=== PATIENT | female | born 2005 | race Caucasian/White ===

== ENCOUNTER 2024-05-17 01:07 | Emergency (ER) | payer BC ==
--- NOTE | 2024-05-17 01:28 | EDPHYS ---
Physician Documentation [facility] Name: Brittany Veloz Age: 19 yrs Sex: Female : 2005 Arrival Date: 05/17/2024 Time: 01:07 Bed 4 Private MD: ED Physician Dc Noyola HPI: 05/17 01:37 This 19 yrs old Female presents to ER via Unassigned with complaints of Toothache, Jaw rt Pain. 01:37 Patient presents to the ED with several days of a left-sided jaw pain, swelling. rt Reports is similar to previous episodes of odontogenic infection. She has not yet been able to get into her dentist. Denies other acute complaints at this time, symptoms are mild in severity, no other aggravating or elevating factors.. Historical: - Allergies: :30 No Known Allergies; bm8 - Home Meds: :30 None [Active]; bm8 - PMHx: 01:30 None; bm8 - PSHx: 01:30 None; bm8 - Immunization history:: Adult Immunizations up to date. - Infectious Disease History:: Denies. - Family history:: not pertinent. - Social history:: Smoking status: Patient denies any tobacco usage or history of. ROS: 01:37 Constitutional: Negative for fever, chills, and weight loss, Cardiovascular: Negative rt for chest pain, palpitations, and edema, Respiratory: Negative for shortness of breath, cough, wheezing, and pleuritic chest pain, Abdomen/GI: Negative for abdominal pain, nausea, vomiting, diarrhea, and constipation, Skin: Negative for injury, rash, and discoloration, Neuro: Negative for headache, weakness, numbness, tingling, and seizure, 01:37 ENT: Positive for dental pain, Negative for difficulty swallowing, Exam: 01:37 Constitutional: This is a well developed, well nourished patient who is awake, alert, rt and in no acute distress. Head/Face: Normocephalic, atraumatic. Chest/axilla: Normal chest wall appearance and motion. Nontender with no deformity. No lesions are appreciated. Cardiovascular: Regular rate and rhythm with a normal S1 and S2. No gallops, murmurs, or rubs. Normal PMI, no JVD. No pulse deficits. Respiratory: Lungs have equal breath sounds bilaterally, clear to auscultation and percussion. No rales, rhonchi or wheezes noted. No increased work of breathing, no retractions or nasal flaring. Abdomen/GI: Soft, non-tender, with normal bowel sounds. No distension or tympany. No guarding or rebound. No evidence of tenderness throughout. Skin: Warm, dry with normal turgor. Normal color with no rashes, no lesions, and no evidence of cellulitis. MS/ Extremity: Pulses equal, no cyanosis. Neurovascular intact. Full, normal range of motion. 01:37 ENT: Dental caries noted, minimal swelling along the angle of the mandible, OP otherwise benign. MDM: 01:23 Patient medically screened. rt 01:37 Differential diagnosis: dental caries, dental abscess. Data reviewed: vital signs, rt nurses notes. I considered the following discharge prescriptions or medication management in the emergency department Medications were administered in the Emergency Department. See MAR. Test considered but Not performed: Other Details Only apparent minor infection, stable vital signs, CT scan, labs not indicated. Counseling: I had a detailed discussion with the patient and/or guardian regarding the historical points, exam findings, and any diagnostic results supporting the discharge/admit diagnosis, the need for outpatient follow up, to return to the emergency department if symptoms worsen or persist or if there are any questions or concerns that arise at home. Administered Medications: 01:30 Drug: Amoxicillin-Clavulanate PO 875 mg PO once Route: PO; lg3 01:33 Follow up: Response: No adverse reaction; Medication Administered at Departure bm8 Disposition Summary: 05/17/24 01:28 Discharge Ordered Notes: Location: Home rt Problem: new rt Symptoms: are unchanged rt Condition: Stable rt Diagnosis - Dental infection rt Followup: rt - With: Private Physician - When: 2 - 3 days - Reason: Discharge Instructions: - Discharge Summary Sheet rt - Dental Pain rt Forms: - Medication Reconciliation Form rt - Antibiotic Education rt - Prescription Opioid Use rt - Patient Portal Instructions rt - Leadership Thank You Letter rt Prescriptions: - Amoxicillin 875 mg Oral Tablet - take 1 tablet ORAL route every 12 hours for 10 days; 20 tablet; Refills: 0, rt Product Selection Permitted Signatures: Maddie Blanton RN RN lg3 Dc Noyola MD MD rt Kern, Avelino, RN RN bm8
[2024-05-17] MEDS ORDERED: AMOX/K CLAV 875 MG TAB ONE (01:29)
--- NOTE | 2024-05-17 01:38 | ER ---
Nurse's Notes [facility] Name: Brittany Veloz Age: 19 yrs Sex: Female : 2005 Arrival Date: 05/17/2024 Time: 01:07 Bed 4 Private MD: Diagnosis: Dental infection Historical: - Allergies: 05/17 01:30 No Known Allergies; bm8 - Home Meds: 01:30 None [Active]; bm8 - PMHx: 01:30 None; bm8 - PSHx: 01:30 None; bm8 - Immunization history:: Adult Immunizations up to date. - Infectious Disease History:: Denies. - Family history:: not pertinent. - Social history:: Smoking status: Patient denies any tobacco usage or history of. Screenin: [facility] ED Fall Risk Assessment (Adult) History of falling in the last 3 months, bm8 including since admission No falls in past 3 months (0 pts) Confusion or Disorientation No (0 pts) Intoxicated or Sedated No (0 pts) Impaired Gait No (0 pts) Mobility Assist Device Used No (0 pt) Altered Elimination No (0 pt) Score/Fall Risk Level 0 - 2 = Low Risk Oriented to surroundings, Maintained a safe environment, Educated pt \T\ family on fall prevention, incl call for assistance when getting out of bed, Assessed \T\ reinforced patient's understanding of fall precautions, Hourly rounding (assess needs \T\ fall precautionary measures) done, Used ambulatory aids as needed (educated on \T\ assisted with), Used gait belt as appropriate. Abuse screen: Denies threats or abuse. Nutritional screening: No deficits noted. Tuberculosis screening: No symptoms or risk factors identified. Assessment: : Reassessment: Patient appears in no apparent distress at this time. Patient and/or bm8 family updated on plan of care and expected duration. Pain level reassessed. Patient is alert, oriented x 3, equal unlabored respirations, skin warm/dry/pink. General: Appears in no apparent distress. comfortable, Behavior is calm, cooperative, appropriate for age. Pain: Complains of pain in mouth Pain currently is 3 out of 10 on a pain scale. Neuro: Level of Consciousness is awake, alert, obeys commands, Oriented to person, place, time, situation, Appropriate for age. Cardiovascular: Denies chest pain, lightheadedness, shortness of breath, Capillary refill < 3 seconds Clubbing of nail beds is absent Patient's skin is warm and dry. Respiratory: Airway is patent Respiratory effort is even, unlabored, Respiratory pattern is regular, symmetrical. GI: No signs and/or symptoms were reported involving the gastrointestinal system. : No signs and/or symptoms were reported regarding the genitourinary system. EENT: Dental caries noted in lower left third molar (#17) and lower left second molar (#18). Derm: No signs and/or symptoms reported regarding the dermatologic system. Musculoskeletal: No signs and/or symptoms reported regarding the musculoskeletal system. ED Course: 01:10 Patient arrived in ED. im 01:12 Dc Noyola MD is Attending Physician. rt 01:28 Avelino Kern, RN is Primary Nurse. bm8 01:31 Patient has correct armband on for positive identification. Bed in low position. Call bm8 light in reach. Side rails up X 1. Client placed on continuous cardiac and pulse oximetry monitoring. NIBP monitoring applied. Pulse ox on. NIBP on. Door closed. Noise minimized. Verbal reassurance given. Head of bed elevated. 01:31 Provided Education on: post er care. bm8 01:31 No provider procedures requiring assistance completed. Patient did not have IV access bm8 during this emergency room visit. Administered Medications: 01:30 Drug: Amoxicillin-Clavulanate PO 875 mg PO once Route: PO; lg3 01:33 Follow up: Response: No adverse reaction; Medication Administered at Departure bm8 Medication: :31 VIS not applicable for this client. bm8 Outcome: :28 Discharge ordered by . rt 01:31 Discharged to home ambulatory, bm8 01:31 Condition: stable 01:31 Discharge instructions given to patient, Instructed on discharge instructions, follow up and referral plans. no drinking with medication, no driving heavy equipment, medication usage, safety practices, Demonstrated understanding of instructions, follow-up care, medications, Prescriptions given X 1, 01:38 Patient left the ED. bm8 Signatures: Maddie Blanton RN RN lg3 Dc Noyola MD MD rt Yesenia Rivera im Avelino Kern, RN RN bm8
== END 2024-05-17 01:38 | disposition home or self-care (01) ==
LOC: ER 01:07
DX: K04.7 Periapical abscess without sinus (principal)
CPT/HCPCS: 99284

== ENCOUNTER 2025-04-02 11:16 | Emergency (ER) | payer BC ==
[2025-04-02] MEDS ORDERED: ONDANSETRON 4 MG/2 ML VIAL ONE (11:42)
[2025-04-02] MEDS ORDERED: FAMOTIDINE 20 MG/2 ML VIAL IV ONE (11:42)
[2025-04-02] MEDS ORDERED: MAGNES/ALUMIN/SIMET 30ML UCUP ONE (11:43)
[2025-04-02] MEDS ORDERED: NA CHLORIDE 0.9% 1,000 ML ONE (11:43)
[2025-04-02] MEDS ORDERED: LIDOCAINE VISCOUS 2% 10ML ORAL SOLN ONE (11:43)
[2025-04-02 11:47] LABS: Urine Culture Reflex Order REFLEXED; Urine Microscopic Reflex YN ORDER UMIC
[2025-04-02 12:13] LABS: Absolute Lymphocytes (CBC) 2.4 K/uL (0.7-4.9); Hematocrit 39.1 % (36.0-45.0); Hemoglobin 13.0 g/dL (12.0-15.0); MCH 25.6 pg (27.0-35.0); MCHC 33.1 g/dL (32.0-36.0); MCV 77.3 fL (80-100); MPV 8.9 fL (7.6-11.3); Nucleated RBC Absolute Count 0.0 (0-0); Nucleated Red Blood Cells % 0.0 % (0-0); RBC Red Blood Cell Count 5.06 M/uL (3.86-4.86); White Blood Count 20.20 thou/uL (4.3-10.9)
[2025-04-02] MEDS ORDERED: MORPHINE 4 MG/ML SYR ONE (13:27)
--- NOTE | 2025-04-02 13:56 | RAD REPORT ---
EXAMINATION: Abdomen Pelvis W Contrast CLINICAL INDICATION: Female, 20 years old.ABD PAIN TECHNIQUE: CT abdomen and pelvis was performed, after the administration of IV contrast, [facility]. Axial, sagittal and coronal reconstructions were obtained. One or more of the following dose reduction techniques were used: Automated exposure control, adjustment of the mA and/o r kV according to patient size, and/or iterative reconstruction. Unless otherwise specified, incidental findings do not require dedicated imaging follow-up. [id number]. COMPARISON: No prior exams FINDINGS: LOWER CHEST: No acute process identified.No significant pericardial effusion. UPPER GI: No significant abnormality. LIVER: Hepatic steatosis, but otherwise unremarkable. GALLBLADDER/BILE DUCTS: No biliary ductal dilatation.? PANCREAS: No mass, ductal dilation, or shelley-pancreatic fluid. SPLEEN: Unremarkable. ADRENALS: No adrenal masses. KIDNEYS AND URETERS: No hydronephrosis.No suspicious renal mass. ABDOMINAL AORTA AND OTHER VESSELS: Normal caliber aorta and IVC. PERITONEUM: Pelvic free fluid with adjacent peritoneal enhancement. LYMPH NODES: No pathologic lymphadenopathy. ABDOMINAL WALL: Unremarkable SMALL BOWEL/COLON: Pronounced inflammatory changes in the right lower quadrant and pelvis. Thickened loops of small bowel present in the right lower quadrant. The upstream small bowel distention but no overt dilatation. There is enhancement of the adjacent peritoneum.Appendix at the right paracolic gutter which is within normal limits. URINARY BLADDER: Underdistended but grossly unremarkable. REPRODUCTIVE ORGANS: Discrete right ovary not visualized. MUSCULOSKELETAL: No acute or suspicious osseous abnormality. ADDITIONAL FINDINGS: Multiple injections in the flanks likely from buttocks augmentation. IMPRESSION: Intense inflammatory changes in the right lower quadrant with clustered loops of small bowel and pelv ic free fluid. A discrete right ovary is not confidently visualized. Recommend pelvic ultrasound to exclude torsion. There is swirling of the mesentery in the right lower quadrant. This could also refl ect an internal hernia with closed loop obstruction assuming the right ovary is within normal limits.. The findings were communicated to Dr. Ian Mathew on 04/02/2025 1:51 PM.
[2025-04-02] MEDS ORDERED: NA CHLORIDE 0.9% 100 ML ONE (14:09)
[2025-04-02] MEDS ORDERED: PIPERACIL/TAZO 3.375 GM VIAL IV ONE (14:09)
[2025-04-02 14:16] LABS: ALT/SGPT 34.0 U/L (13-56); Albumin 2.8 g/dL (3.4-5.0); Albumin/Globulin Ratio 0.8 (1.1-1.8); Alkaline Phosphatase 64.0 U/L (45-117); Anion Gap 7.3 mEq/L (5.0-15.0); BUN Blood Urea Nitrogen 6.0 mg/dL (7-18); Globulin 3.5 g/dL (2.3-3.5); Glucose Level 89.0 mg/dL (74-106); Lipase 10.0 U/L (13-75)
[2025-04-02 14:17] LABS: AST/SGOT 17.0 U/L (15-37); Potassium 3.3 mEq/L (3.5-5.1)
[2025-04-02 14:32] LABS: PT Prothrombin Time 15.9 SECONDS (10-13.0); PTT, Activated Partial Thromb 27.9 SECONDS (27.2-37.4); Protime INR 1.42
--- NOTE | 2025-04-02 14:43 | RAD REPORT ---
Transvaginal Study Probe CLINICAL INDICATION: Female 20 years old abd pain, rule out torsion TECHNIQUE: Real-time ultrasonography of the pelvis was performed transvaginally and transabdominally. Color and spectral Doppler evaluation of the ovaries was performed. [id number]. COMPARISON: Same day CT FINDINGS: UTERUS AND CERVIX: The uterus measures 7.2 x 3.2 x 4.3 cm (cervix to fundus x AP x transverse). The u terus is normal. No masses seen . The endometrium is normal,8 mm thickness. RIGHT OVARY: Significantly enlarged ovary with multiple peripheral subcentimeter cysts. The right ova ry measures 7 x 4.3 x 5.8 cm with volume of 91.1 mL. Normal color and spectral Doppler evaluation of the right ovary.. LEFT OVARY: Nonvisualized. FREE FLUID: Mild pelvic free fluid. Superior to the right ovary, there is heterogeneous echotexture material that is of uncertain etiolog y, possibly the abnormal small bowel that was seen on CT. IMPRESSION: 1. Significantly enlarged right ovary though with vascular flow currently. The enlargement could be f rom either partial or intermittent torsion. 2. Nonvisualized left ovary. 3. Heterogeneous echotexture material superior to the right ovary of uncertain etiology, possibly abn ormal small bowel that was seen on the same day CT. 4. Small volume of nonspecific pelvic free fluid.
--- NOTE | 2025-04-02 15:18 | EDPHYS ---
Physician Documentation [facility] Name: Brittany Veloz Age: 20 yrs Sex: Female : 2005 Arrival Date: 04/02/2025 Time: 11:16 Bed 5 Private MD: ED Physician Neo Mathew HPI: 04/02 12:09 This 20 yrs old Female presents to ER via Ambulatory with complaints of General rn Weakness, FATIQUE, Abdominal Pain, Back Pain. 12:09 Patient reports drinking heavily this weekend, came back with upper abdominal pain, rn nausea, diarrhea. No blood in stool or emesis. Patient reports generalized weakness and malaise. Does state her last period lasted longer and heavier bleeding so might be anemic. Patient denies urinary symptoms.. 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 - Infectious Disease History:: Denies. - Social history:: Smoking status: Reported history of juuling and/or vaping. - Family history:: not pertinent. - Hospitalizations: : No recent hospitalization is reported. ROS: 12:09 Constitutional: Negative for fever, chills, and weight loss, Neck: Negative for injury, rn pain, and swelling, Cardiovascular: Negative for chest pain, palpitations, and edema, Respiratory: Negative for shortness of breath, cough, wheezing, and pleuritic chest pain, Abdomen/GI: Positive for abdominal pain with nausea and vomiting and diarrhea Back: Negative for injury and pain, : Negative for injury, bleeding, discharge, and swelling, MS/Extremity: Negative for injury and deformity, Neuro: Positive for generalized weakness and malaise Exam: 12:09 Constitutional: This is a well developed, well nourished patient who is awake, alert, rn and in no acute distress. Ambulatory to room without assistance or difficulty ENT: Dry mucous membranes Cardiovascular: Regular rate and rhythm. No pulse deficits. Respiratory: No increased work of breathing, no retractions or nasal flaring. Abdomen/GI: Soft, mid abdominal tenderness without rebound or guarding. Negative Espinoza Neuro: Awake and alert, GCS 15 Vital Signs: 11:25 BP 139 / 92; Pulse 99; Resp 17; Temp 99.1; Pulse Ox 99% ; Weight 108.86 kg; Height 5 jl7 ft. 11 in. ; Pain 6/10; 13:32 BP 106 / 94; Pulse 92; Resp 16; Pulse Ox 100% ; Pain 6/10; iw 14:39 BP 124 / 81; Pulse 90; Resp 15; Pulse Ox 100% ; Pain 5/10; jl7 15:48 Pulse 95; Resp 15; Pulse Ox 100% ; jl7 11:25 Body Mass Index 33.47 (108.86 kg, 180.34 cm) jl7 11:25 Pain Scale: Adult jl7 13:32 Pain Scale: Adult iw 14:39 Pain Scale: Adult jl7 MDM: 11:18 Medical Screening Exam initiated rn 14:20 ED course: Called nik for consultation, in OR currently. . rn 14:27 ED course: Dr. Reynoso called back, discussed case, will come see patient and evaluate.rn 14:42 Data reviewed: vital signs, nurses notes, lab test result(s), radiologic studies, CT rn scan, ultrasound, and as a result, I will admit patient. Consideration of Admission/Observation Patient was admitted/placed on observation. Escalation of care including admission/observation considered. 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 Reynoso, will admit to hospitalist, he will come see patient. Counseling: I had a detailed discussion with the patient and/or guardian regarding the historical points, exam findings, and any diagnostic results supporting the discharge/admit diagnosis, lab results, radiology results, the need for further work-up and treatment in the hospital. 15:10 Differential diagnosis: Intermittent ovarian torsion, TOA. ED course: Dr. Reynoso rn discussed case with radiology Dr. Story, they both believe this is more gynecological in origin, recommend transfer as we do not have gynecology for you either intermittent torsion versus TOA.. 16:03 ED course: Spoke with gynecology at [facility], she states to try another rn facility as she does not have [employer] On[facility] or IR for drainage of tubo-ovarian abscess. Will now initiate transfer to [facility].. 04/02 11:19 Order name: UA Rfx José Miguel Cult if indicated; Complete Time: 13:03 rn 04/02 11:19 Order name: Test, Urine; Complete Time: 13:03 rn 04/02 11:39 Order name: CBC with Diff; Complete Time: 13:03 rn 04/02 11:39 Order name: CMP; Complete Time: 14:19 rn 04/02 11:39 Order name: Lipase; Complete Time: 14:19 rn 04/02 11:42 Order name: GC (True/Chl) Probe URINE rn 04/02 12:04 Order name: Urine Culture EDWI 04/02 13:42 Order name: Lactate w/ 2H reflex if indic.; Complete Time: 14:41 rn 04/02 13:42 Order name: BNP; Complete Time: 14:47 rn 04/02 13:42 Order name: Blood Culture Adult (2) rn 04/02 13:42 Order name: Protime (+inr); Complete Time: 14:41 rn 04/02 13:42 Order name: Ptt, Activated; Complete Time: 14:41 rn 04/02 11:39 Order name: CT Abd/Pelvis - IV Contrast Only; Complete Time: 15:15 rn 04/02 13:46 Order name: US Pelvis Complete; Complete Time: 14:47 rn 04/02 14:30 Order name: Transvaginal Study Probe; Complete Time: 14:47 [facility] 04/02 11:39 Order name: IV Saline Lock; Complete Time: 12:05 rn 04/02 11:39 Order name: Labs collected and sent; Complete Time: 12:05 rn 04/02 13:07 Order name: Labs - recollect needed: recollect light green top/ chemistries hemolyed eb per Mindy ; Complete Time: 13:26 04/02 13:42 Order name: Accucheck; Complete Time: 13:44 rn 04/02 13:42 Order name: Cardiac monitoring; Complete Time: 13:43 rn 04/02 13:42 Order name: IV Saline Lock - Large Bore; Complete Time: 13:43 rn 04/02 13:42 Order name: O2 Per Protocol; Complete Time: 13:43 rn 04/02 13:42 Order name: O2 Sat Monitoring; Complete Time: 13:43 rn 04/02 13:42 Order name: Vital Signs; Complete Time: 13:43 rn 04/02 14:16 Order name: NPO; Complete Time: 14:30 rn Administered Medications: 11:50 Drug: Famotidine IVP 20 mg IVP once; dilute with 10 mL 0.9% NaCl; give over 2 minutes jl7 Route: IVP; Site: right antecubital; 13:34 Follow up: Response: Pain is unchanged, physician notified iw 11:50 Drug: Ondansetron IVP 4 mg IVP once; over 2 minutes Route: IVP; Site: right antecubital;jl7 13:34 Follow up: Response: No adverse reaction; Nausea is decreased iw 11:50 Drug: NS 0.9% IV 1000 ml IV at 1 bolus Per protocol; to be given as a bolus over 60 jl7 minutes Route: IV; Rate: 1 bolus; Site: right antecubital; 14:40 Follow up: Response: No adverse reaction; IV Status: Completed infusion; IV Intake: jl7 1000ml 11:50 Drug: GI Cocktail without - (Maalox PO 30 ml, Lidocaine Mucous Membrane 2 % 15 jl7 ml) PO once Route: PO; 13:34 Follow up: Response: Pain is unchanged, physician notified iw 13:33 Drug: morphine IVP or IV 4 mg IVP once over 4 mins Route: IVP; Infused Over: 4 mins; iw Site: right antecubital; 14:00 Follow up: Response: No adverse reaction; Pain is decreased jl7 14:15 Drug: Piperacillin-Tazobactam IVPB 3.375 grams IVPB once over 60 mins; (mix in NS 100 jl7 mL) Route: IVPB; Infused Over: 60 mins; Site: right antecubital; 14:50 Follow up: IV Status: Completed infusion iw 15:42 Drug: HYDROmorphone IVP 1 mg IVP once Route: IVP; Site: right antecubital; jl7 16:49 Follow up: Response: No adverse reaction; Pain is decreased iw Disposition Summary: 04/02/25 15:17 Transfer Ordered Notes: Transfer Location: [facility] rn Reason: Higher level of care rn Condition: Stable rn Problem: new rn Symptoms: have improved rn Accepting Physician: (04/02/25 16:49) iw Diagnosis - Tubo-ovarian abscess rn - Intermittent/partial ovarian torsion rn Forms: - Medication Reconciliation Form rn - SBAR form rn Signatures: Dispatcher [employer] EDMS Sandy Pierre, MAURICIO RN iw Neo Mathew MD MD rn Leal, Jahala, RN RN jl7 Cara Rosales Corrections: (The following items were deleted from the chart) 11:39 11:39 Abdomen Pelvis W Con+CT.RAD.BRZ ordered. EDMS EDMS 13:43 13:43 PROBNP+C.LAB.BRZ ordered. EDMS EDMS 13:43 13:43 BLOOD CULTURE*+BA.LAB.BRZ ordered. EDMS EDMS 13:43 13:43 PROTIME (+INR)+COAG.LAB.BRZ ordered. EDMS EDMS 13:43 13:43 PTT, ACTIVATED+COAG.LAB.BRZ ordered. EDMS EDMS 13:46 13:46 Pelvis Complete+US.RAD.BRZ ordered. EDMS EDMS 16:49 15:17 Dr. fitzgerald iw
--- NOTE | 2025-04-02 15:18 | ER ---
Nurse's Notes [facility] Gal Name: Brittany Veloz Age: 20 yrs Sex: Female : 2005 Arrival Date: 04/02/2025 Time: 11:16 Bed 5 Private MD: Diagnosis: Tubo-ovarian abscess;Intermittent/partial ovarian torsion Presentation: 04/02 11:25 Chief complaint: Patient states: Diffuse abdominal pain, diarrhea, fatigue since jl7 yesterday. Coronavirus screen: At this time, the client does not indicate any symptoms associated with coronavirus-19. Ebola Screen: No symptoms or risks identified at this time. Initial Sepsis Screen: Does the patient meet any 2 criteria? No. Patient's initial sepsis screen is negative. Does the patient have a suspected source of infection? No. Patient's initial sepsis screen is negative. Risk Assessment: Do you want to hurt yourself or someone else? Patient reports no desire to harm self or others. Onset of symptoms was April 01, 2025. 11:25 Method Of Arrival: [facility] 11:25 Acuity: GISELL 3 jl7 Triage Assessment: 11:27 General: Appears in no apparent distress. uncomfortable, Behavior is cooperative, jl7 anxious, restless. Pain: Complains of pain in abdomen diffusely Pain currently is 6 out of 10 on a pain scale. Neuro: Zhu Agitation-Sedation Scale (RASS): +1 Restless Level of Consciousness is awake, alert, obeys commands, Oriented to person, place, time, situation. Cardiovascular: Patient's skin is warm and dry. Respiratory: Airway is patent Respiratory effort is even, unlabored, Respiratory pattern is regular, symmetrical. GI: Reports diarrhea, nausea. Derm: Skin is pink, warm \T\ dry. 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 - Infectious Disease History:: Denies. - Social history:: Smoking status: Reported history of juuling and/or vaping. - Family history:: not pertinent. - Hospitalizations: : No recent hospitalization is reported. Screenin:35 [facility] ED Fall Risk Assessment (Adult) History of falling in the last 3 months, jl7 including since admission No falls in past 3 months (0 pts) Confusion or Disorientation No (0 pts) Intoxicated or Sedated No (0 pts) Impaired Gait No (0 pts) Mobility Assist Device Used No (0 pt) Altered Elimination No (0 pt) Score/Fall Risk Level 0 - 2 = Low Risk Oriented to surroundings, Maintained a safe environment. Abuse screen: Denies threats or abuse. Denies injuries from another. Nutritional screening: No deficits noted. Tuberculosis screening: No symptoms or risk factors identified. Assessment: 12:30 Reassessment: Patient appears in no apparent distress at this time. No changes from jl7 previously documented assessment. Patient and/or family updated on plan of care and expected duration. Pain level reassessed. Patient is alert, oriented x 3, equal unlabored respirations, skin warm/dry/pink. 13:30 Reassessment: Patient appears in no apparent distress at this time. Patient and/or iw family updated on plan of care and expected duration. Pain level reassessed. Patient states symptoms have not improved. 14:40 Reassessment: Patient appears in no apparent distress at this time. Patient and/or jl7 family updated on plan of care and expected duration. Pain level reassessed. Patient is alert, oriented x 3, equal unlabored respirations, skin warm/dry/pink. pain rated 5/10 at this time. 15:48 Reassessment: Patient appears in no apparent distress at this time. No changes from jl7 previously documented assessment. Patient and/or family updated on plan of care and expected duration. Pain level reassessed. Patient is alert, oriented x 3, equal unlabored respirations, skin warm/dry/pink. 16:48 GI: Abdomen is tender to palpation in right lower quadrant and left lower quadrant. Vital Signs: 11:25 BP 139 / 92; Pulse 99; Resp 17; Temp 99.1; Pulse Ox 99% ; Weight 108.86 kg; Height 5 jl7 ft. 11 in. ; Pain 6/10; 13:32 BP 106 / 94; Pulse 92; Resp 16; Pulse Ox 100% ; Pain 6/10; iw 14:39 BP 124 / 81; Pulse 90; Resp 15; Pulse Ox 100% ; Pain 5/10; jl7 15:48 Pulse 95; Resp 15; Pulse Ox 100% ; jl7 11:25 Body Mass Index 33.47 (108.86 kg, 180.34 cm) jl7 11:25 Pain Scale: Adult jl7 13:32 Pain Scale: Adult iw 14:39 Pain Scale: Adult jl7 ED Course: 11:17 Patient arrived in ED. ts1 11:18 Neo Mathew MD is Attending Physician. rn 11:25 Oliva Sánchez RN is Primary Nurse. jl7 11:27 Triage completed. jl7 11:27 Arm band placed on right wrist. jl7 11:35 Patient has correct armband on for positive identification. Provided Education on: use jl7 of call kramer. 11:35 Urine collected: clean catch specimen. jl7 11:45 Initial lab(s) drawn, by ri, sent to lab. Inserted saline lock: 20 gauge in right jl7 antecubital area, using aseptic technique. Blood collected. Flushed with 10 mL NS. 13:19 CT Abd/Pelvis - IV Contrast Only In Process Unspecified. EDMS 13:50 First set of blood cultures drawn by me. jl7 14:00 Second set of blood cultures drawn by me. jl7 14:30 US Pelvis Complete In Process Unspecified. EDMS 14:30 Transvaginal Study Probe In Process Unspecified. EDMS 15:36 initiated a transfer with Rosa from the [facility]. eb 15:57 connected the SUPERCHARGE REPAIR SUPERVISOR construction electrician for [facility] with Dr. Mathew for patient transfer eb consultation. 16:08 initiated a transfer with Humberto from the [facility] transfer center. eb 16:16 connected the SUPERCHARGE REPAIR SUPERVISOR construction electrician for [facility] with Dr. Mathew for patient transfer consultation. eb 16:18 administrative approval given by Humberto Kramer/ patient has been accepted to [facility] ED/ Dr. Dc Cyr has accepted the patient in transfer/ report to be called to [phone]. 16:48 No provider procedures requiring assistance completed. Patient transferred, IV remains iw in place. Administered Medications: 11:50 Drug: Famotidine IVP 20 mg IVP once; dilute with 10 mL 0.9% NaCl; give over 2 minutes jl7 Route: IVP; Site: right antecubital; 13:34 Follow up: Response: Pain is unchanged, physician notified iw 11:50 Drug: Ondansetron IVP 4 mg IVP once; over 2 minutes Route: IVP; Site: right antecubital;jl7 13:34 Follow up: Response: No adverse reaction; Nausea is decreased iw 11:50 Drug: NS 0.9% IV 1000 ml IV at 1 bolus Per protocol; to be given as a bolus over 60 jl7 minutes Route: IV; Rate: 1 bolus; Site: right antecubital; 14:40 Follow up: Response: No adverse reaction; IV Status: Completed infusion; IV Intake: jl7 1000ml 11:50 Drug: GI Cocktail without - (Maalox PO 30 ml, Lidocaine Mucous Membrane 2 % 15 jl7 ml) PO once Route: PO; 13:34 Follow up: Response: Pain is unchanged, physician notified iw 13:33 Drug: morphine IVP or IV 4 mg IVP once over 4 mins Route: IVP; Infused Over: 4 mins; iw Site: right antecubital; 14:00 Follow up: Response: No adverse reaction; Pain is decreased jl7 14:15 Drug: Piperacillin-Tazobactam IVPB 3.375 grams IVPB once over 60 mins; (mix in NS 100 jl7 mL) Route: IVPB; Infused Over: 60 mins; Site: right antecubital; 14:50 Follow up: IV Status: Completed infusion iw 15:42 Drug: HYDROmorphone IVP 1 mg IVP once Route: IVP; Site: right antecubital; jl7 16:49 Follow up: Response: No adverse reaction; Pain is decreased iw Medication: 11:36 VIS not applicable for this client. jl7 Intake: 14:40 IV: 1000ml; Total: 1000ml. jl7 Outcome: 15:17 ER care complete, transfer ordered by . rn 16:48 Transferred by ground EMS to [facility], Transfer form iw completed. X-rays sent w/ patient. 16:48 Condition: stable 16:48 Discharge instructions given to patient, family, Instructed on the need for transfer, Demonstrated understanding of instructions, 16:49 Patient left the ED. iw Signatures: Dispatcher [employer] EDMS Sandy Pierre RN RN iw Neo Mathew MD MD rn Leal, Jahala, RN RN jl7 Cara Rosales Medina Salinas, DORI PAS ts1 Corrections: (The following items were deleted from the chart) 15:19 15:07 initiated a transfer with [place] from the [facility] transfer center [facility] : 15:07 initiated a transfer with Hoda from the [facility] transfer center [facility] : 15:17 connected the Hand Surgeon construction electrician for [facility] with Gavin Moore for patient transfer consultation 15:18 administrative approval given by Hoda Ellington Rn/ patient has been accepted to [facility] ER. Dr. Hair Melgar has accepted the patient in transfer. report to be called to [phone]
[2025-04-02] MEDS ORDERED: HYDROMORPHONE HCL 1 MG/ML INJ ONE (15:37)
[2025-04-02 20:46] VITALS: TEMP 99.1
[2025-04-02 21:04] VITALS: O2SAT 100
[2025-04-02 21:07] VITALS: BP 124/81
[2025-04-05 15:31] LABS: C.trachomatis RNA,TMA Not Detected (Not Detected); N.gonorrhoeae RNA,TMA Detected (Not Detected)
== END 2025-04-02 16:49 | disposition short-term general hospital (02) ==
LOC: ER 11:16
DX: N70.93 Salpingitis and oophoritis, unspecified (principal); N83.53 Torsion of ovary, ovarian pedicle and fallopian tube; R53.81 Other malaise; R53.83 Other fatigue
CPT/HCPCS: 96365; 96361; 87040 ×2; 87088; 85025; 81001; 87086; 36415; 81025; 85610; 83605; 85730; 83690; 80053; 87590; 87490; 83880; 74177; 76856; 76830; 96375; 99285; Q9967; J2543; J1171; J2405; J7030